=== PATIENT | male | born 1970 | race Caucasian/White ===

== ENCOUNTER 2016-12-23 15:15 | Inpatient (IN) | payer OTHER ==
[~2016-12-23] VITALS: Ht 170.2 cm; Wt 108.6 kg
[2016-12-23] MEDS ORDERED: LOSA50TA6 PO (15:52)
[2016-12-23] MEDS ORDERED: ASPIRIN 81 MG TABLET CHEW PO ONE (16:00)
[2016-12-23] MEDS ORDERED: SODIUM CHLORIDE FLUSH 10ML SYR IVF ONE (16:00)
[2016-12-23 16:02] LABS: HEMOGLOBIN 16.5 g/dL (13.7-18.0)
[2016-12-23] MEDS ORDERED: ASPIRIN 81 MG TABLET CHEW ONE (16:06)
[2016-12-23 16:09] LABS: ASPARTATE AMINO TRANSFERASE 23 U/L (15-37); BLOOD UREA NITROGEN 11 mg/dL (7-18)
[2016-12-23 16:13] LABS: IS PT STATUS REG ER OR PRE ER? YES
[2016-12-23] MEDS ORDERED: MORPHINE SULFATE 4 MG/ML, 1ML IVPush PRN (17:00)
[2016-12-23] MEDS ORDERED: ONDANSETRON 2MG/ML, 2ML IVPush ONE (17:00)
[2016-12-23] MEDS ORDERED: OMNIPAQUE 350 MG/ML, 150 ML BOTTLE ONE (17:14)
[2016-12-23] MEDS ORDERED: NITROGLYCERIN SINGLE TAB 0.4 MG SL PRN (18:00)
[2016-12-23] MEDS ORDERED: MORPHINE SULFATE 4 MG/ML, 1ML ONE (18:24)
[2016-12-23] MEDS ORDERED: ONDANSETRON 2MG/ML, 2ML ONE (18:24)
[2016-12-23] MEDS ORDERED: DOBUTAMINE/D5W PMX 250 ML IV ONE (19:05)
[2016-12-23] MEDS ORDERED: BISACODYL 10 MG SUPP PR PRN (19:30)
[2016-12-23] MEDS ORDERED: NITROGLYCERIN 0.4 MG/SPRAY SL PRN (19:30)
[2016-12-23] MEDS ORDERED: NITROGLYCERIN 0.4 MG BOTTLE (25 TABS) SL PRN (19:30)
[2016-12-23] MEDS ORDERED: ACETAMINOPHEN 325 MG TABLET PO PRN (19:30)
[2016-12-23] MEDS ORDERED: ASPIRIN 325 MG TABLET EC PO ONE (19:30)
[2016-12-23] MEDS ORDERED: SODIUM CHLORIDE 0.9% 500 ML IV SCH (21:00)
[2016-12-23 21:40] LABS: IS PT STATUS REG ER OR PRE ER? NO
[2016-12-23] MEDS: LOSARTAN 50MG TABLET PO SCH (22:10)
[2016-12-23] MEDS: SODIUM CHLORIDE FLUSH 10ML SYR IVF SCH (22:11)
[2016-12-23 22:14] VITALS: BP 141/92
[2016-12-23] MEDS: morphine SULFATE 10 MG/ML, 1ML IV PRN (22:52)
[2016-12-24 03:31] VITALS: BP 116/76
[2016-12-24 03:51] LABS: ASPARTATE AMINO TRANSFERASE 21 U/L (15-37); BLOOD UREA NITROGEN 11 mg/dL (7-18)
[2016-12-24 03:56] LABS: IS PT STATUS REG ER OR PRE ER? NO
[2016-12-24] MEDS: morphine SULFATE 10 MG/ML, 1ML IV PRN (04:03)
[2016-12-24] MEDS ORDERED: ASPIRIN 325 MG TABLET EC PO SCH (06:00)
[2016-12-24] MEDS: SODIUM CHLORIDE FLUSH 10ML SYR IVF SCH (08:00)
[2016-12-24 08:12] VITALS: BP 120/80
[2016-12-24 08:21] VITALS: BP 106/67
[2016-12-24] MEDS: LOSARTAN 50MG TABLET PO SCH (09:00)
[2016-12-24] MEDS ORDERED: REGADENOSON 0.4 MG/5 ML SYRINGE ONE (09:08)
[2016-12-24 09:26] VITALS: BP 108/71
[2016-12-24 16:35] VITALS: BP 153/91
[2016-12-24] MEDS ORDERED: ATOR20TA9 PO (16:50)
[2016-12-24] MEDS ORDERED: FAMO20TA7 PO (16:50)
== END 2016-12-24 17:57 | disposition home or self-care (01) | DRG 392 ==
LOC: ED 18:02 → EDIP 18:03 → ED 18:51 → 5SO 20:24
PROVIDERS: ADMIT Internal Medicine; ATTEND Internal Medicine
DX: K21.9 Gastro-esophageal reflux disease without esophagitis (principal); Z82.49 Family history of ischemic heart disease and other diseases of the circulatory system; I10 Essential (primary) hypertension; F17.200 Nicotine dependence, unspecified, uncomplicated; Z79.82 Long term (current) use of aspirin; E78.1 Pure hyperglyceridemia; G47.33 Obstructive sleep apnea (adult) (pediatric)
CPT/HCPCS: 36415; 71020; 71275; 78452; 80053; 80061; 84484; 85025; 85379; 93005; 93017; 93306; 96374; 96375; J2405; J2785; Q9967; A9502; C9898; J2270; J7040